=== PATIENT | male | born 1975 | race Caucasian/White ===

== ENCOUNTER 2017-02-02 06:03 | Day surgery (SDC) | payer BC, OTHER ==
[2017-02-02] VITALS (19 sets, daily range): BP systolic 112–151; BP diastolic 66–99; PULSE 89–106; RESP 17–20; Ht 193 cm; Wt 94.4 kg
[~2017-02-02] VITALS: Ht 193 cm; Wt 94.4 kg
[2017-02-02] MEDS: BETAMET NA PHOS/AC(6 MG/ML) 5ML INJ ONE
[~2017-02-02 06:03] MED LIST: GELATIN SIZE 100 SPONGE TOP ONE; THROMBIN 5000 UNIT VIAL TOP ONE
[2017-02-02] MEDS ORDERED: THROMBIN 5000 UNIT VIAL ONE ×4 (06:49→09:56)
[2017-02-02] MEDS ORDERED: GELATIN SIZE 100 SPONGE ONE ×2 (06:49→09:30)
[2017-02-02] MEDS ORDERED: POLYMYXIN/BACITRACIN 1L IRRIG ONE (06:49)
[2017-02-02] MEDS ORDERED: BUPIVACAINE 0.25%/EPI (SDV) 30 ML INJ ONE (06:49)
--- NOTE | 2017-02-02 06:57 | HPN ---
Date/Time of Note Date/Time of Note DATE: 02/02/17 TIME: 06:57 Interval H&P Admission Note Pt. seen H&P reviewed: No system changes HARVINDER VELASQUEZ MD Feb 02, 2017 06:57
[2017-02-02] MEDS ORDERED: CEFAZOLIN 2 GM/50 ML (PMX) 50 ML IVPB ONE (06:58)
[2017-02-02] MEDS ORDERED: LACTATED RINGER'S 1,000 ML IV* ONE (07:00)
[2017-02-02] MEDS ORDERED: CYCL5TAB PO (07:18)
[2017-02-02] MEDS ORDERED: IBUP-1542 PO (07:18)
[2017-02-02] MEDS ORDERED: MELO-109 PO (07:18)
[2017-02-02] MEDS ORDERED: HYDR-902 PO (07:18)
[2017-02-02] MEDS ORDERED: FENTAnyl 50 MCG/ML VIAL ONE ×2 (07:31→10:34)
[2017-02-02] MEDS ORDERED: PROPOFOL 20 ML ONE (07:31)
[2017-02-02] MEDS ORDERED: MIDAZOLAM 1 MG/ML 2 ML INJ ONE (07:31)
[2017-02-02] MEDS ORDERED: ROCURONIUM 50 MG INJ ONE (07:32)
[2017-02-02] MEDS ORDERED: DEXAMETHASONE 4 MG/ML 1 ML INJ ONE (07:52)
[2017-02-02] MEDS ORDERED: LIDOCAINE 2% (SDV) 5 ML INJ ONE (07:52)
[2017-02-02] MEDS ORDERED: SUCCINYLCHOLINE CHLORIDE 100 MG/5 ML SYG IV ONE (07:52)
[2017-02-02] MEDS ORDERED: HYDROmorphONE 2 MG/ML SYG ONE (07:55)
[2017-02-02] MEDS ORDERED: DESFLURANE 15 MIN ONE (08:00)
[2017-02-02] MEDS ORDERED: ONDANSETRON 4 MG INJ ONE (08:00)
[2017-02-02] MEDS ORDERED: BUPIVACAINE 0.25%/EPI (SDV) 30 ML INJ INJ ONE (08:05)
[2017-02-02] MEDS ORDERED: POLYMYXIN/BACITRACIN 1L IRRIG IRR ONE (08:05)
[2017-02-02] MEDS ORDERED: hydrALAzine 20 MG INJ IV PRN (08:30)
[2017-02-02] MEDS ORDERED: ONDANSETRON 4 MG INJ IV PRN ×2 (08:30→10:30)
[2017-02-02] MEDS ORDERED: EPHEDrine SULFATE 50 MG/5 ML SYG IV PRN (08:30)
[2017-02-02] MEDS ORDERED: HYDROmorphONE (0.2 MG/ML) 10ML SYG IV PRN ×3 (08:30)
[2017-02-02] MEDS ORDERED: LABETALOL HCL 20MG INJ IV PRN (08:30)
[2017-02-02] MEDS ORDERED: FENTAnyl 50 MCG/ML VIAL IV PRN ×3 (08:30)
[2017-02-02] MEDS ORDERED: MEPERIDINE 25 MG INJ IV PRN (08:30)
[2017-02-02] MEDS ORDERED: THROMBIN 5000 UNIT VIAL TOP ONE ×2 (09:16→09:59)
[2017-02-02] MEDS ORDERED: HEMOSTATIC MATRIX SYG ZFS ONE ×2 (09:16→09:59)
[2017-02-02] MEDS ORDERED: GELATIN SIZE 100 SPONGE TOP ONE (09:35)
[2017-02-02] MEDS ORDERED: BETAMET NA PHOS/AC(6 MG/ML) 5ML INJ INJ ONE (10:01)
[2017-02-02] MEDS ORDERED: GLYCOPYRROLATE 1 MG INJ ONE (10:23)
[2017-02-02] MEDS ORDERED: NEOSTIGMINE 3 MG/3 ML SYRINGE ONE (10:23)
--- NOTE | 2017-02-02 10:28 | PDOCDIS ---
Discharge Instructions DIAGNOSIS Discharge Diagnosis: Right L5-S1 HNP CONDITION Patient Condition: Good HOME CARE INSTRUCTIONS: Diet Instructions: Regular ACTIVITY: Activity Restrictions: Avoid heavy lifting Bathing Restrictions: ShowerActivity Restrictions Comment: Please try to keep posterior dressing intact until post-op appointment. Ok FOLLOW UP/APPOINTMENTS Appointments Follow-up in 2 weeks with HARVINDER Polo MD Feb 02, 2017 10:28
[2017-02-02] MEDS ORDERED: ACETAMINOPHEN/CODEINE #3 TAB PO PRN (10:30)
[2017-02-02] MEDS ORDERED: NACL 0.9% 3 ML SYG IV SCH (10:30)
[2017-02-02] MEDS ORDERED: NALOXONE (0.4 MG/ML) INJ IV PRN (10:30)
[2017-02-02] MEDS ORDERED: PROCHLORPERAZINE 10 MG TAB PO PRN (10:30)
[2017-02-02] MEDS ORDERED: HYDROCODONE/APAP (5/325) TAB PO PRN (10:30)
--- NOTE | 2017-02-02 10:34 | OPR ---
Date/Time of Note Date/Time of Note DATE: 02/02/17 TIME: 10:30 Operative Report Free Text/Dictation DATE OF OPERATION: 02/02/2017 PREOPERATIVE DIAGNOSES: Right L5-S1 disk herniation with radiculopathy POSTOPERATIVE DIAGNOSES: Right L5-S1 disk herniation with radiculopathy OPERATION PERFORMED: Right L5-S1 microdiscectomy SURGEON: Harvinder Velasquez MD CRUTCH MAKER: Ayush Whipple MD ANESTHESIA: General endotracheal ESTIMATED BLOOD LOSS: 70 mL SURGICAL INDICATION: The patient is a 41 year-old male who presents with a history of right lower extremity pain and weakness. He was found to have a disc herniation which correlated well with his symptoms. The patient had failed conservative treatment. Risks, benefits, and alternatives to microdiscectomy were explained to the patient and they wished to proceed. Risks explained included but were not exclusive of bleeding, infection, cauda equina syndrome, nerve injury, dural tear, iatrogenic instability, recurrent disc herniation, fracture, vascular injury, bowel injury, stroke, heart attack and pulmonary embolism. DESCRIPTION OF TECHNIQUE: The patient was identified in the preoperative area and taken to the operating room. Rapid induction of general endotracheal anesthesia was performed. The patient was given 2 g of cefazolin for prophylaxis. The patient was then placed in the prone position on the Kevin frame on a Cristo flat top table with all prominences well padded. The back was prepped and draped in the usual sterile manner. Using a spinal needle and intraoperative fluoroscopy, the appropriate level was clearly identified (L5-S1) . The skin was injected using 0.25% Marcaine with epinephrine. Longitudinal midline incision was then created using a 10 blade. Further dissection through soft tissue was performed using electrocautery down to the spinous processes. The dissection was taken down the right side of the lamina and over the facet joint capsule. A self-retaining retractor was applied. Again, intraoperative fluoroscopy confirmed the appropriate level. The microscope was brought into use for microdissection. A small portion of the caudal aspect of the cephalad lamina was resected using a high-speed bur. A series of Kerrison rongeurs were then used to resect the ligamentum flavum. The dura and traversing nerve root were both directly visualized. These were retracted gently in a medial direction. The extruded disc fragment was noted. The fragment was noted to be in the axilla of the S1 nerve root. The pseudo anulus was incised using an 11 blade. Several loose fragments of disk were removed. A large disk fragment measuring 2 cm x 1.5 cm was also identified and removed. These were removed back to a stable portion of the disk. The disk space was further pressurized using a using normal saline through a syringe to ensure that no loose fragments remained behind. Palpation with a ball-tip probe did not reveal any further stenosis. The traversing S1 nerve root was noted to be significantly decompressed. Meticulous attention was paid towards hemostasis using FloSeal as well as Gelfoam and thrombin. Care was taken to remove all FloSeal and Gelfoam prior to wound closure. The fascia was then closed using 0 Vicryl in an interrupted fashion. Subcutaneous tissue was closed using 2-0 Vicryl in an interrupted fashion. The skin was closed using a running 4-0 Monocryl stitch. The wound was dressed using Dermabond and a 4x4 sterile gauze. The patient was returned to the supine position. He was extubated immediately postoperatively and taken to the recovery room in stable condition. Surgeon: HARVINDER VELASQUEZ MD Group Managing Director: AYUSH MARTINEZ MD Anesthesia: general Estimated Blood Loss: 50 - 100 ml's Complications: None Pt Condition Post Procedure: stable Disposition: PACU HARVINDER VELASQUEZ MD Feb 02, 2017 10:34
--- NOTE | 2017-02-02 12:24 | RADRPT ---
PROCEDURE: Intraoperative imaging of the lumbar spine with fluoroscopy. CLINICAL INDICATION: Back pain. Intraoperative. TECHNIQUE: 2 images of the lumbar spine were obtained in the operating room with an image intensif ier. No radiologist was in attendance. 4.2 seconds of fluoroscopy time was used. COMPARISON: No prior study is available for comparison. FINDINGS: For the purposes of this report, the last apparent true disc level is considered to be L5-S1. Based on this, the posterior surgical instrument is present overlying the L5-S1 level. IMPRESSION: 1. Intraoperative imaging of the lumbar spine. RPTAT: QQ .Esdras Miles MD, Date Time Electronically viewed and signed by .Esdras Miles MD, on 02/02/2017 12:24 .R/
[2017-02-02] MEDS ORDERED: HYDROmorphONE 1 MG/ML SYG IV STA (13:23)
== END 2017-02-02 15:15 | disposition home or self-care (01) ==
LOC: SDS 06:03 → MS1 12:23 → SDS 15:15
PROVIDERS: ATTEND Orthopaedic Surgery
DX: M51.26 Other intervertebral disc displacement, lumbar region (principal); M51.16 Intervertebral disc disorders with radiculopathy, lumbar region; J45.909 Unspecified asthma, uncomplicated
CPT/HCPCS: 63030; 72100; 97163; J0330; J0690; J0702; J1100; J1170; J2250; J2405; J2710; J3010